=== PATIENT | female | born 1950 | race Hispanic/Latino ===

== ENCOUNTER 2023-03-15 07:18 | Inpatient (IN) | payer OTHER ==
[2023-03-15] MEDS ORDERED: METHYLPREDNISOLONE 125 MG INJ ONE (07:54)
[2023-03-15] MEDS ORDERED: CEFTRIAXONE 1000 MG/VIAL ONE (07:54)
[2023-03-15] MEDS ORDERED: NA CHLORIDE 0.9% 250 ML ONE (07:55)
[2023-03-15] MEDS ORDERED: AZITHROMYCIN 500 MG INJ IVPB ONE (07:55)
--- NOTE | 2023-03-15 07:56 | RAD REPORT ---
EXAM DESCRIPTION: RAD - Chest Single View - 03/15/2023 7:48 am CLINICAL HISTORY: COPD COMPARISON: <Comparisons> FINDINGS: Lines: None. Lungs: No evidence of edema or pneumonia. Hyperexpanded lungs. Pleural: No significant pleural effusions or pneumothorax. Cardiac: The heart size is within normal limits. Mediastinum: Within normal limits. Bones: No acute fractures. Other: None IMPRESSION: Emphysema without superimposed acute process .
[2023-03-15 08:01] LABS: Absolute Lymphocytes (CBC) 0.9 K/uL (0.7-4.9); Hematocrit 42.2 % (36.0-45.0); Lymphocytes % 16.3 % (15.3-44.8); MCV 88.3 fL (80-100); MPV 6.6 fL (7.6-11.3); Platelets 402 thou/uL (152-406); RBC Red Blood Cell Count 4.78 M/uL (3.86-4.86)
[2023-03-15 08:06] LABS: Protime INR 0.99
[2023-03-15 08:16] LABS: Albumin 3.9 g/dL (3.4-5.0); Bilirubin Total 0.5 mg/dL (0.2-1.0); Potassium 3.9 mEq/L (3.5-5.1); Protein, Total 8.1 g/dL (6.4-8.2)
--- NOTE | 2023-03-15 08:35 | EDPHYS ---
Physician Documentation [facility] Name: Ernst Mandel Age: 72 yrs Sex: Female : 1950 Arrival Date: 03/15/2023 Time: 07:18 Bed 25 Private MD: ED Physician Chris Matthews HPI: 03/15 07:50 This 72 yrs old Female presents to ER via EMS with complaints of Shortness Of ec2 Breath. 07:50 Patient arrives today due to concern for progressive shortness of breath. Patient ec2 reports that she has a history of COPD, has occasional oxygen dependence however has had progressive symptoms over the past week. Patient reports that she has cough without fevers, no nausea or vomiting, no diarrhea symptoms. Patient denies any chest pain. Denies any leg swelling. States that she has albuterol inhalers at home that have had minimal improvement with her symptoms.. Historical: - Allergies: 07:33 No Known Allergies; hb - PMHx: 07:33 COPD; hb 07:33 Hypothyroidism; rs5 - Immunization history:: Adult Immunizations up to date. - Social history:: Smoking status: Patient reports the use of cigarette tobacco products, smokes one pack cigarettes per day. ROS: 07:50 Constitutional: as per hpi ec2 Exam: 07:50 Constitutional: GEN: NAD Head: atraumatic Eyes: EOMI Ears: External ears are ec2 normal. CV: regular rate LUNGS: Tachypnea noted, scattered wheezes with generalized decreased aeration ABD: non-distended SKIN: no evidence of rashes MSK: no evidence of trauma NEURO: moves all extremities equally Vital Signs: 07:30 BP 162 / 102; Pulse 96; Resp 24; Temp 98.2(O); Pulse Ox 100% on 3 lpm NC; Weight 61.69 hb kg; Height 5 ft. 3 in. ; Pain 0/10; 07:45 BP 159 / 98; Pulse 94; Resp 26 S; Pulse Ox 100% on 3 lpm NC; aa5 08:20 BP 130 / 107; Pulse 91; Resp 25 S; Pulse Ox 100% on 3 lpm NC; aa5 08:44 BP 145 / 91; Pulse 94; Resp 22 S; Pulse Ox 100% on Nebulizer Mask; aa5 09:30 BP 145 / 93; Pulse 90; Resp 24 S; Pulse Ox 100% on 2 lpm NC; aa5 10:30 BP 147 / 89; Pulse 87; Resp 23 S; Pulse Ox 100% on 2 lpm NC; aa5 11:30 BP 143 / 94; Pulse 82; Resp 21 S; Temp 97.8(TE); Pulse Ox 100% on 2 lpm NC; aa5 07:30 Body Mass Index 24.09 (61.69 kg, 160.02 cm) hb 07:30 Pain Scale: Adult hb MDM: 07:23 Patient medically screened. ec2 07:50 ED course: Patient arrives today due to concern for progressive shortness of breath in ec2 setting of known COPD. Examination remarkable for pulmonary findings as noted above. Patient does meet SIRS criteria with the heart rate as well as the tachypnea, will empirically treat for pulmonary pathology given the patient's known COPD. Currently considering COPD exacerbation, pneumonia, viral infection. I will give the patient Solu-Medrol, antibiotics and a breathing treatment and reassess the patient. I suspect patient will require admission to the hospital for continued management of her COPD exacerbation with oxygen dependence.. 08:05 ED course: Chest x-ray independently reviewed and interpreted by me, shows ec2 hyperinflated lungs consistent with COPD, no evidence of focal infiltrate.. 08:20 ED course: CBC is reassuring without leukocytosis or anemia. Metabolic profile with ec2 minimal hyponatremia, otherwise reassuring renal function. Lactic acid within normal ranges. Coagulation profile is reassuring. . 08:34 ED course: Ultimately patient needed for stress criteria with concern for COPD ec2 exacerbation, will admit for continued management of sepsis. I discussed case with hospitalist, pending admission.. 08:35 Data reviewed: vital signs. ec2 03/15 07:37 Order name: Blood Culture Adult (2) ec2 03/15 07:37 Order name: CBC with Diff; Complete Time: 08:20 ec2 03/15 07:37 Order name: CMP; Complete Time: 08:20 ec2 03/15 07:37 Order name: Lactate w/ 2H reflex if indic.; Complete Time: 08:20 ec2 03/15 07:37 Order name: Protime (+inr); Complete Time: 08:20 ec2 03/15 07:37 Order name: Ptt, Activated; Complete Time: 08:20 ec2 03/15 07:37 Order name: COVID-19 SARS RT PCR; Complete Time: 09:41 ec2 03/15 07:37 Order name: Influenza Screen (a \T\ B); Complete Time: 09:41 ec2 03/15 07:59 Order name: TSH; Complete Time: 09:06 ec2 03/15 07:59 Order name: T4 Free; Complete Time: 09:06 ec2 03/15 11:18 Order name: Urinalysis w/ reflexes EDMS 03/15 11:18 Order name: Basic Metabolic Panel EDMS 03/15 11:18 Order name: Basic Metabolic Panel EDMS 03/15 11:18 Order name: Basic Metabolic Panel EDMS 03/15 11:18 Order name: Magnesium EDMS 03/15 11:18 Order name: Magnesium EDMS 03/15 11:18 Order name: Magnesium EDMS 03/15 07:37 Order name: Chest Single View XRAY; Complete Time: 08:05 ec2 03/15 07:37 Order name: EKG; Complete Time: 07:38 ec2 03/15 07:37 Order name: Cardiac monitoring; Complete Time: 07:55 ec2 03/15 07:37 Order name: EKG - Nurse/Tech; Complete Time: 07:38 ec2 03/15 07:37 Order name: IV Saline Lock - Large Bore; Complete Time: 07:55 ec2 03/15 07:37 Order name: Labs collected and sent; Complete Time: 07:55 ec2 03/15 07:37 Order name: O2 Per Protocol; Complete Time: 07:55 ec2 03/15 07:37 Order name: O2 Sat Monitoring; Complete Time: 07:55 ec2 03/15 07:37 Order name: Vital Signs; Complete Time: 07:39 ec2 Administered Medications: 07:51 Drug: MethylPrednisoLONE IVP 125 mg IVP once Route: IVP; Site: right antecubital; aa5 08:10 Follow up: Response: No adverse reaction aa5 08:18 Drug: Rocephin IV 1 grams IV at calculated rate once; Given slow IV push per pharmacy aa5 instructions Route: IV; Rate: calculated rate; Site: right antecubital; 08:21 Follow up: IV Status: Completed infusion aa5 08:24 Follow up: Response: No adverse reaction aa5 08:24 Drug: AZITHromycin IVPB 500 mg IVPB once over 1 hrs; (mix in 250 mL NS) Route: IVPB; aa5 Infused Over: 1 hrs; Site: right wrist; 08:44 Follow up: Response: No adverse reaction aa5 09:24 Follow up: Response: No adverse reaction; IV Status: Completed infusion aa5 08:37 Drug: DuoNeb Nebulize (3:1) (2.5 mg - 0.5 mg) 3 ml Nebulizer once Route: Nebulizer; aa5 08:44 Follow up: Response: No adverse reaction aa5 09:24 Drug: Magnesium Sulfate IVPB 2 grams IVPB once over 2 hrs Route: IVPB; Infused Over: 2 aa5 hrs; Site: right wrist; 10:24 Follow up: IV Status: Completed infusion aa5 Disposition: 08:34 Critical Care:. ec2 Disposition Summary: 03/15/23 08:35 Hospitalization Ordered Notes: Hospitalization Status: Inpatient Admission ec2 Provider: Justin Hope ec2 Condition: Stable ec2 Problem: an acute exacerbation ec2 Symptoms: have improved ec2 Bed/Room Type: Standard ec2 Location: Telemetry/MedSurg (Inpatient)(03/15/23 20:23) cg Room Assignment: [facility](03/15/23 20:23) cg Diagnosis - COPD/ Chronic obstructive pulmonary disease with (acute) exacerbation ec2 - Sepsis, unspecified organism ec2 Discharge Instructions: - Discharge Summary Sheet aa5 Forms: - SBAR form aa5 - Medication Reconciliation Form ec2 - Leadership Thank You Letter ec2 Critical care time excluding procedures: 08:34 Critical care time: Bedside Care: 25 minutes, Consultation: 5 minutes. Total time: 30 ec2 minutes Signatures: Dispatcher [employer] EDLou Kelley RN RN aa5 Isrrael Bhatt FNP-Alex AVALOSP-Cla1 Opal Ling RN RN cg Griselda Lantigua RN RN hb Botello, Elizabeth eb Sotelo, Ricky, RN RN rs5 Chris Matthews MD MD ec2 Corrections: (The following items were deleted from the chart) 08:00 07:37 Accucheck ordered. ec2 aa5 09:19 08:35 Telemetry/MedSurg (Inpatient) ec2 eb 09:19 08:35 ec2 eb 20:23 09:19 [facility] ER HOLD eb cg 20:23 09:19 ERHOLD- eb cg
--- NOTE | 2023-03-15 08:35 | ER ---
Nurse's Notes [facility] Name: Ernst Mandel Age: 72 yrs Sex: Female : 1950 Arrival Date: 03/15/2023 Time: 07:18 Bed 25 Private MD: Diagnosis: COPD/ Chronic obstructive pulmonary disease with (acute) exacerbation;Sepsis, unspecified organism Presentation: 03/15 07:30 Chief complaint: Patient's son or daughter states: Worsening SOB x 2 weeks, became hb severe this morning, unrelieved by albuterol neb. Hx of COPD, on 3LNC home O2. BP 180/96, HR 102, initially unable to get SpO2, 96% on 6LNC. Coronavirus screen: Client presents with at least one sign or symptom that may indicate coronavirus-19. Provider contacted for isolation considerations. Ebola Screen: No symptoms or risks identified at this time. Initial Sepsis Screen: Does the patient meet any 2 criteria? RR > 20 per min. HR > 90 bpm. Yes Does the patient have a suspected source of infection? No. Patient's initial sepsis screen is negative. Risk Assessment: Do you want to hurt yourself or someone else? Patient reports no desire to harm self or others. Onset of symptoms was February 28, 2023. 07:30 Method Of Arrival: EMS: [facility] 07:30 Acuity: IFTIKHAR 2 hb Triage Assessment: 07:34 General: Appears distressed, Behavior is calm, cooperative. Pain: Denies pain. Neuro: hb Level of Consciousness is awake, alert, obeys commands, Oriented to person, place, time, situation. Cardiovascular: Patient's skin is warm and dry. Rhythm is tachy. Respiratory: Reports shortness of breath at rest Respiratory effort is labored, Respiratory pattern is tachypnea. Historical: - Allergies: 07:33 No Known Allergies; hb - PMHx: 07:33 COPD; hb 07:33 Hypothyroidism; rs5 - Immunization history:: Adult Immunizations up to date. - Social history:: Smoking status: Patient reports the use of cigarette tobacco products, smokes one pack cigarettes per day. Screenin:40 [facility] ED Fall Risk Assessment (Adult) History of falling in the last 3 months, aa5 including since admission No falls in past 3 months (0 pts) Confusion or Disorientation No (0 pts) Intoxicated or Sedated No (0 pts) Impaired Gait No (0 pts) Mobility Assist Device Used No (0 pt) Altered Elimination No (0 pt) Score/Fall Risk Level 0 - 2 = Low Risk Oriented to surroundings, Maintained a safe environment, Educated pt \T\ family on fall prevention, incl call for assistance when getting out of bed. Abuse screen: Denies threats or abuse. Nutritional screening: No deficits noted. Tuberculosis screening: No symptoms or risk factors identified. Assessment: 07:35 General: Appears uncomfortable, Behavior is calm, cooperative. Pain: Complains of pain aa5 in chest Pain currently is 5 out of 10 on a pain scale. Quality of pain is described as pressure, Pain began gradually, Is continuous. Neuro: Level of Consciousness is awake, alert, obeys commands, Oriented to person, place, time, situation. Cardiovascular: Heart tones S1 S2 present Rhythm is regular. Respiratory: Reports shortness of breath at rest since 1 week ago cough that is productive, with clear sputum Airway is patent Respiratory effort is even, labored, Respiratory pattern is tachypnea Breath sounds with wheezes bilaterally. GI: Abdomen is non-distended, Bowel sounds present X 4 quads. Abd is soft and non tender X 4 quads. : No signs and/or symptoms were reported regarding the genitourinary system. EENT: No signs and/or symptoms were reported regarding the EENT system. Derm: Skin is dry, Skin is normal, Skin temperature is warm. Musculoskeletal: Range of motion: intact in all extremities. 08:00 Neuro: Level of Consciousness is awake, alert, obeys commands, Oriented to person, aa5 place, time, situation. Respiratory: Airway is patent Respiratory effort is even, labored, Respiratory pattern is regular, symmetrical, tachypnea Breath sounds with wheezes bilaterally. Derm: Skin is dry, Skin is normal, Skin temperature is warm. 08:34 Reassessment: Pt's breathing and SOB has not improved, MD notified. . aa5 09:30 Neuro: Level of Consciousness is awake, alert, obeys commands, Oriented to person, aa5 place, time, situation. Respiratory: Airway is patent Respiratory effort is even, labored, Respiratory pattern is tachypnea. Derm: Skin is dry, Skin is normal, Skin temperature is warm. 09:30 Reassessment: Patient states feeling better. aa5 10:30 Neuro: Level of Consciousness is awake, alert, obeys commands, Oriented to person, aa5 place, time, situation. Cardiovascular: Rhythm is sinus rhythm. Respiratory: Airway is patent Respiratory effort is even, Respiratory pattern is tachypnea. Derm: Skin is dry, Skin is normal, Skin temperature is warm. 10:30 Reassessment: Pt sitting up in bed watching TV.. aa5 11:30 Reassessment: Patient is alert, oriented x 3, equal unlabored respirations, skin aa5 warm/dry/pink. Patient states feeling better. Patient states symptoms have improved. Vital Signs: 07:30 BP 162 / 102; Pulse 96; Resp 24; Temp 98.2(O); Pulse Ox 100% on 3 lpm NC; Weight 61.69 hb kg; Height 5 ft. 3 in. ; Pain 0/10; 07:45 BP 159 / 98; Pulse 94; Resp 26 S; Pulse Ox 100% on 3 lpm NC; aa5 08:20 BP 130 / 107; Pulse 91; Resp 25 S; Pulse Ox 100% on 3 lpm NC; aa5 08:44 BP 145 / 91; Pulse 94; Resp 22 S; Pulse Ox 100% on Nebulizer Mask; aa5 09:30 BP 145 / 93; Pulse 90; Resp 24 S; Pulse Ox 100% on 2 lpm NC; aa5 10:30 BP 147 / 89; Pulse 87; Resp 23 S; Pulse Ox 100% on 2 lpm NC; aa5 11:30 BP 143 / 94; Pulse 82; Resp 21 S; Temp 97.8(TE); Pulse Ox 100% on 2 lpm NC; aa5 07:30 Body Mass Index 24.09 (61.69 kg, 160.02 cm) hb 07:30 Pain Scale: Adult hb ED Course: 07:23 Patient arrived in ED. aa5 07:23 Chris Matthews MD is Attending Physician. ec2 07:33 Triage completed. hb 07:34 Arm band placed on. hb 07:35 Patient has correct armband on for positive identification. Placed in gown. Bed in low aa5 position. Call light in reach. Side rails up X2. Client placed on continuous cardiac and pulse oximetry monitoring. NIBP monitoring applied. 07:48 Inserted saline lock: 20 gauge in right antecubital area, using aseptic technique. aa5 07:50 Chest Single View XRAY In Process Unspecified. EDMS 07:50 Initial lab(s) drawn, by me, sent to lab. First set of blood cultures drawn by me. aa5 08:10 Second set of blood cultures drawn by me. aa5 08:18 Inserted saline lock: 22 gauge in right wrist, using aseptic technique. aa5 08:22 Lou Vasquez RN is Primary Nurse. aa5 08:34 Tariq Fernandes MD is Hospitalizing Provider. ec2 08:35 Justin Hope MD is Hospitalizing Provider. ec2 12:00 Patient admitted, IV remains in place. aa5 12:00 No provider procedures requiring assistance completed. aa5 Administered Medications: 07:51 Drug: MethylPrednisoLONE IVP 125 mg IVP once Route: IVP; Site: right antecubital; aa5 08:10 Follow up: Response: No adverse reaction aa5 08:18 Drug: Rocephin IV 1 grams IV at calculated rate once; Given slow IV push per pharmacy aa5 instructions Route: IV; Rate: calculated rate; Site: right antecubital; 08:21 Follow up: IV Status: Completed infusion aa5 08:24 Follow up: Response: No adverse reaction aa5 08:24 Drug: AZITHromycin IVPB 500 mg IVPB once over 1 hrs; (mix in 250 mL NS) Route: IVPB; aa5 Infused Over: 1 hrs; Site: right wrist; 08:44 Follow up: Response: No adverse reaction aa5 09:24 Follow up: Response: No adverse reaction; IV Status: Completed infusion aa5 08:37 Drug: DuoNeb Nebulize (3:1) (2.5 mg - 0.5 mg) 3 ml Nebulizer once Route: Nebulizer; aa5 08:44 Follow up: Response: No adverse reaction aa5 09:24 Drug: Magnesium Sulfate IVPB 2 grams IVPB once over 2 hrs Route: IVPB; Infused Over: 2 aa5 hrs; Site: right wrist; 10:24 Follow up: IV Status: Completed infusion aa5 Medication: 08:29 VIS not applicable for this client. aa5 Outcome: 08:35 Decision to Hospitalize by Provider. ec2 12:00 Admitted to ER Hold. Please see [facility] for further documentation. aa5 12:00 Condition: stable 12:00 Instructed on the need for admit, Demonstrated understanding of instructions, 21:33 Patient left the ED. cm10 Signatures: Dispatcher [employer] Lou Alvarenga, RN RN aa5 Griselda Lantigua RN RN Michael Milligan, RN RN rs5 Aura Carney RN RN cm10 Chris Matthews MD MD ec2 Corrections: (The following items were deleted from the chart) 08:42 07:35 Respiratory: Reports shortness of breath at rest since 1 week ago Airway is aa5 patent Respiratory effort is even, labored, Respiratory pattern is tachypnea Breath sounds with wheezes bilaterally. aa5 19:11 09:30 BP 145 / 93; Pulse 90bpm; Resp 24bpm; Spontaneous; Pulse Ox 100% Nasal Cannula aa5 FiO2 2%; aa5
[2023-03-15 08:37] LABS: Thyroid Stimulating Hormone 17.1 uIU/mL (0.358-3.740)
[2023-03-15] MEDS ORDERED: IPRATROPIUM BROM 0.5MG/2.5ML ONE ×3 (08:50→20:02)
[2023-03-15] MEDS ORDERED: ALBUTEROL 2.5 MG/3 ML NEB SOL ONE (08:50)
--- NOTE | 2023-03-15 09:26 | P.HP ---
Certification for Inpatient Patient admitted to: Observation With expected LOS: <2 Midnights Patient will require the following post-hospital care: None Practitioner: I am a practitioner with admitting privileges, knowledge of patient current condition, hospital course, and medical plan of care. Services: Services provided to patient in accordance with Admission requirements found in Title 42 Section 412.3 of the Code of Federal Regulations Patient History Date of Service: 03/15/23 Reason for admission: COPD exacerbation History of Present Illness: 72-year-old female with history of COPD on home oxygen, hypothyroidism presents emerged part for shortness of breath. She is visiting from out of town reports that her shortness of breath began approximate 2 weeks ago but became much worse last night. Upon arrival to the emergency department patient with significant expiratory wheezing, moderate distress. Her labs were significant for sodium 13 1 chloride 96 creatinine 0.52 glucose 114 lactic acid 1.1 TSH 17.1 Free T4 1.04 COVID and influenza test were negative chest x-ray showed emphysema without superimposed findings. She was treated with IV steroids, nebulizer treatments in the ED without significant improvement clinically admitted for COPD exacerbation. She does wear home oxygen but only periodically/as needed. - Past Medical/Surgical History -: COPD -: Hypothyroidism -: Hysterectomy -: Tonsillectomy Psychosocial/ Personal History: Lives out of town, here visiting family - Family History Family History: Reviewed- Non-Contributory - Social History Smoking Status: Current every day smoker Counseled patient to stop smoking for: less than 10 minutes Alcohol use: Yes CD- Drugs: No Caffeine use: Yes Place of Residence: Home Review of Systems 10-point ROS is otherwise unremarkable Respiratory: Shortness of Breath, Wheezing Physical Examination - Physical Exam General: Alert, In no apparent distress, Oriented x3 HEENT: Atraumatic, PERRLA, Mucous membr. moist/pink, EOMI, Sclerae nonicteric Neck: Supple, 2+ carotid pulse no bruit, No LAD, Without JVD or thyroid abnormality Respiratory: Diminished, Expiratory wheezes Cardiovascular: No edema, Regular rate/rhythm, Normal S1 S2 Capillary refill: <2 Seconds Gastrointestinal: Normal bowel sounds, No tenderness Musculoskeletal: No tenderness Integumentary: No rashes Neurological: Normal gait, Normal speech, Normal strength at 5/5 x4 extr, Normal tone, Normal affect Lymphatics: No axilla or inguinal lymphadenopathy - Studies Laboratory Data (last 24 hrs) 03/15/23 03/15/23 03/15/23 07:50 07:50 07:50 WBC 5.50 Hgb 13.9 Hct 42.2 Plt Count 402 PT 10.9 INR 0.99 APTT 35.9 Sodium 131 L Potassium 3.9 BUN 4 L Creatinine 0.52 L Glucose 114 H Total Bilirubin 0.5 AST 17 ALT 20 Alkaline Phosphatase 92 Microbiology Data (last 24 hrs): 03/15/23 07:55 Nasopharnyx Influenza Type A Antigen Screen - Final 03/15/23 07:55 Nasopharnyx Influenza Type B Antigen Screen - Final Assessment and Plan - Plan Assessment: COPD exacerbation-on chronic O2 Hypothyroidism Plan: COPD exacerbation-on chronic O2 Continue supplemental oxygen as needed As needed nebulizer treatments, p.o. steroids, ICS in place Pulmonology consult in place. Continue Zithromax. PRN Bipap, mild to moderate distress noted, significant for wheezing. Given dose of IV mag. Hypothyroidism Continue home medications. DVT PPX: Lovenox Code status: Full Discharge Plan: Home Plan to discharge in: 24 Hours - Advance Directives Does patient have a Living Will: No Does patient have a Durable POA for Healthcare: No - Code Status/Comfort Care Code Status Assessed: Yes (Full code) Critical Care: No Time Spent Managing Pts Care (In Minutes): 55
[2023-03-15] MEDS ORDERED: Magnesium Sulfate 2gm IVPB 2 G/50 ML BAG IV ONE (09:35)
[2023-03-15] MEDS ORDERED: ONDANSETRON 4 MG/2 ML VIAL IV PRN (11:16)
[2023-03-15 13:20] VITALS: BMI 24.0
[2023-03-15] MEDS: IPRATROPIUM BROM 0.5MG/2.5ML NEB SCH ×2 (15:00→19:45)
[2023-03-15 17:52] LABS: Specific Gravity 1.009 (1.005-1.030); Urine Bacteria None Seen /HPF (<20); Urine Bilirubin NEGATIVE (Negative); Urine Blood Negative (Negative); Urine Clarity Extremely Turbid (Clear); Urine Color Light-Yellow (Yellow); Urine Glucose NEGATIVE (Negative); Urine Mucus Slight /HPF (None Seen); Urine Protein NEGATIVE (Negative); Urine RBC None Seen /HPF (None Seen); Urine Urobilinogen Normal (Normal)
[2023-03-15] MEDS ORDERED: BENZONATATE 100 MG CAP PO ONE (20:10)
[2023-03-15] MEDS ORDERED: predniSONE 20 MG TAB ONE (20:11)
[2023-03-15] MEDS: DULERA 200/5 (MOMETASONE/FORMOTEROL) INHALER IH SCH (20:29)
[2023-03-15] MEDS: predniSONE 20 MG TAB PO SCH (20:29)
[2023-03-15] MEDS: BENZONATATE 100 MG CAP PO PRN (20:29)
[2023-03-16] MEDS: IPRATROPIUM BROM 0.5MG/2.5ML NEB SCH ×4 (01:44→20:00)
[2023-03-16 03:54] LABS: Magnesium 2.6 mg/dL (1.6-2.4); Potassium 3.9 mEq/L (3.5-5.1)
[2023-03-16] MEDS ORDERED: POTASSIUM CL SA 10 MEQ TAB PO ONE (06:00)
[2023-03-16] MEDS: AZITHROMYCIN IV 500 MG in NA CHLORIDE 0.9% 250 ML IVPB SCH (08:12)
[2023-03-16] MEDS: ENOXAPARIN 40 MG/0.4 ML SQ SCH (08:12)
[2023-03-16] MEDS: predniSONE 20 MG TAB PO SCH ×2 (08:12→20:22)
[2023-03-16] MEDS: DULERA 200/5 (MOMETASONE/FORMOTEROL) INHALER IH SCH ×2 (08:13→20:26)
--- NOTE | 2023-03-16 10:53 | P.PN ---
Subjective Date of Service: 03/16/23 Chief Complaint: COPD exacerbation Subjective: Improving Still short of breath but improving <Isrrael Bhatt - Last Filed: 03/16/23 10:52> Date of Service: 03/16/23 <Justin Hope - Last Filed: 03/16/23 17:45> Review of Systems 10-point ROS is otherwise unremarkable Respiratory: Cough, Shortness of Breath <Isrrael Bhatt - Last Filed: 03/16/23 10:52> Physical Examination - Vital Signs Temperature: 97.7 F Blood Pressure: 145/80 Pulse: 70 Respirations: 16 Pulse Ox (%): 99 - Physical Exam General: Alert, In no apparent distress, Oriented x3 HEENT: Atraumatic, PERRLA, EOMI Neck: Supple, JVD not distended Respiratory: Expiratory wheezes Cardiovascular: Regular rate/rhythm, Normal S1 S2 Gastrointestinal: Normal bowel sounds, No tenderness Musculoskeletal: No tenderness Integumentary: No rashes Neurological: Normal speech, Normal affect - Studies Microbiology Data (last 24 hrs): 03/15/23 07:55 Nasopharnyx Influenza Type A Antigen Screen - Final 03/15/23 07:55 Nasopharnyx Influenza Type B Antigen Screen - Final Medications List Reviewed: Yes <Isrrael Bhatt - Last Filed: 03/16/23 10:52> Assessment And Plan - Plan Assessment: COPD exacerbation-on chronic O2 Hypothyroidism Plan: COPD exacerbation-on chronic O2 Has not had to wear home 02 in the past 5 months, now needing Continue supplemental oxygen as needed Still with mild-moderate wheezing As needed nebulizer treatments, p.o. steroids, ICS in place Pulmonology consult in place. Continue Zithromax. Hypothyroidism Continue home medications. Dispo-likely DC tomorrow DVT PPX: Lovenox Code status: Full Discharge Plan: Home Plan to discharge in: 24 Hours - Code Status/Comfort Care Code Status Assessed: Yes (Full) Critical Care: No Time Spent Managing PTS Care (In Minutes): 35 <Isrrael Bhatt - Last Filed: 03/16/23 10:52> Physician Review: Patient Assessed, Agree with Above Assessment and Plan Physician Review Additional Text: She is still wheezing on exam. She would likely benefit from an additional day of IV steroids and bronchodilators. Dr. Jackson to take over as attending physician tomorrow. <Justin Hope - Last Filed: 03/16/23 17:45>
[2023-03-16] MEDS: BENZONATATE 100 MG CAP PO PRN (20:22)
[2023-03-17] MEDS: IPRATROPIUM BROM 0.5MG/2.5ML NEB SCH ×4 (02:00→19:05)
[2023-03-17 03:06] LABS: Magnesium 2.5 mg/dL (1.6-2.4); Potassium 3.9 mEq/L (3.5-5.1)
[2023-03-17] MEDS: LEVOTHYROXINE SOD 0.1 MG TAB PO SCH (05:58)
[2023-03-17] MEDS: BENZONATATE 100 MG CAP PO PRN ×2 (05:59→20:42)
[2023-03-17] MEDS ORDERED: POTASSIUM CL SA 10 MEQ TAB PO ONE (09:00)
[2023-03-17] MEDS: DULERA 200/5 (MOMETASONE/FORMOTEROL) INHALER IH SCH ×2 (09:00→20:43)
[2023-03-17] MEDS: ENOXAPARIN 40 MG/0.4 ML SQ SCH (09:55)
[2023-03-17] MEDS: predniSONE 20 MG TAB PO SCH ×2 (09:55→20:42)
[2023-03-17] MEDS: AZITHROMYCIN IV 500 MG in NA CHLORIDE 0.9% 250 ML IVPB SCH (09:56)
--- NOTE | 2023-03-17 11:52 | P.CNS ---
Date of Consult: 03/17/23 Reason for Consult: COPD exacerbation Chief Complaint: COPD exacerbation History of Present Illness: Patient is 72 years of age with a history of COPD lives in [place] has a history of COPD uses Symbicort last exacerbation was about about a year ago has gotten worse over the past 2 weeks complaining of progressive dyspnea and cough is an active smoker Allergies No Known Allergies Allergy (Unverified 03/15/23 11:16) Home Medications: Albuterol Neb [Proventil 0.083% Neb Soln] 1 inh NEB BID PRN 03/15/23 Budesonide/Formoterol Fumarate [Symbicort 160-4.5 Mcg Inhaler] 2 puff PO BID 03/15/23 Levothyroxine Sodium [Synthroid] 200 mcg PO DAILY 03/15/23 - Past Medical/Surgical History -: COPD -: Hypothyroidism -: Hysterectomy -: Tonsillectomy Psychosocial/ Personal History: Lives out of town, here visiting family - Social History Smoking Status: Current every day smoker Alcohol use: Yes CD- Drugs: No Caffeine use: Yes Place of Residence: Home Review of Systems 10-point ROS is otherwise unremarkable Respiratory: Cough, Shortness of Breath Physical Examination Temp Pulse Resp BP Pulse Ox 97.1 F 64 17 144/77 H 98 03/17/23 08:00 03/17/23 08:00 03/17/23 08:00 03/17/23 08:00 03/17/23 08:00 General: Alert, Oriented x3 Neck: Supple Respiratory: Clear to auscultation bilaterally, Diminished Cardiovascular: No edema, Regular rate/rhythm, Normal S1 S2 Gastrointestinal: Normal bowel sounds, Soft and benign - Problems (1) COPD exacerbation Current Visit: Yes Status: Acute Plan: Patient is 72 years of age with a history of COPD admitted with an exacerbation she is an active smoker patient's inhaler needs to be upgraded to Trelegy or Breztri chemistries and labs reviewed chest x-ray shows COPD changes discharge home on prednisone/follow-up with me in 2-week patient counseled to stop smoking
[2023-03-18] MEDS: IPRATROPIUM BROM 0.5MG/2.5ML NEB SCH ×3 (01:10→13:20)
[2023-03-18] MEDS: LEVOTHYROXINE SOD 0.1 MG TAB PO SCH (05:53)
[2023-03-18] MEDS: ALBUTEROL 2.5 MG/3 ML NEB SOL NEB PRN ×2 (07:55→13:20)
--- NOTE | 2023-03-18 07:59 | EKG ---
Test Date: 2023-03-15 Test Time: 07:31:52 Multigrapher: AVI MEASUREMENT RESULTS: Intervals: Rate: 109 [place]: 184 QRSD: 78 QT: 380 QTc: 511 [place]: P: 79 [place]: 184 QRS: 76 T: 79 INTERPRETIVE STATEMENTS: Sinus tachycardia Nonspecific ST abnormality Abnormal ECG No previous ECG available for comparison Electronically Signed On 03-18-23 07:53:28 CDT by Kirk Castillo
[2023-03-18] MEDS: ENOXAPARIN 40 MG/0.4 ML SQ SCH (08:42)
[2023-03-18] MEDS: predniSONE 20 MG TAB PO SCH (08:42)
[2023-03-18] MEDS: DULERA 200/5 (MOMETASONE/FORMOTEROL) INHALER IH SCH (08:42)
[2023-03-18 08:47] LABS: Potassium 3.8 mEq/L (3.5-5.1)
[2023-03-18] MEDS: BENZONATATE 100 MG CAP PO PRN (10:23)
[2023-03-18 13:09] VITALS: BP 131/78; TEMP 97.5
[2023-03-18 13:47] VITALS: O2SAT 93
--- NOTE | 2023-03-22 18:15 | P.PN ---
Date of Service: 03/17/23 Subjective Subjective: Still short of breath but improving Physical Examination - Vital Signs Temperature: 97.7 F Blood Pressure: 145/80 Pulse: 70 Respirations: 16 Pulse Ox (%): 99 - Physical Exam General: Alert, In no apparent distress, Oriented x3 HEENT: Atraumatic, PERRLA, EOMI Neck: Supple, JVD not distended Respiratory: Expiratory wheezes Cardiovascular: Regular rate/rhythm, Normal S1 S2 Gastrointestinal: Normal bowel sounds, No tenderness Musculoskeletal: No tenderness Integumentary: No rashes Neurological: Normal speech, Normal affect Assessment And Plan - Assesment/Plan Assessment: COPD exacerbation-on chronic O2 Hypothyroidism Plan: COPD exacerbation-on chronic O2 Has not had to wear home 02 in the past 5 months, now needing Continue supplemental oxygen as needed Still with mild-moderate wheezing As needed nebulizer treatments, p.o. steroids, ICS in place Pulmonology consult in place. Continue Zithromax. Hypothyroidism Continue home medications. Dispo-likely DC tomorrow DVT PPX: Lovenox Code status: Full Discharge Plan: Home Plan to discharge in: 24 Hours - Code Status/Comfort Care Code Status Assessed: Yes (Full) Critical Care: No Time Spent Managing PTS Care (In Minutes): 35
--- NOTE | 2023-03-22 18:16 | P.DS ---
Discharge Date: 03/18/23 Disposition: ROUTINE DISCHARGE Discharge Condition: GOOD Reason for Admission: COPD exacerbation Brief History of Present Illness: 72-year-old female with history of COPD on home oxygen, hypothyroidism presents emerged part for shortness of breath. She is visiting from out of town reports that her shortness of breath began approximate 2 weeks ago but became much worse last night. Upon arrival to the emergency department patient with significant expiratory wheezing, moderate distress. Her labs were significant for sodium 131 chloride 96 creatinine 0.52 glucose 114 lactic acid 1.1 TSH 17.1 Free T4 1.04 COVID and influenza test were negative chest x-ray showed emphysema without superimposed findings. She was treated with IV steroids, nebulizer treatments in the ED without significant improvement clinically admitted for COPD exacerbation. She does wear home oxygen but only periodically/as needed. Vital Signs/Physical Exam: Temp Pulse Resp BP Pulse Ox 97.5 F 75 16 131/78 97 03/18/23 12:00 03/18/23 12:00 03/18/23 12:00 03/18/23 12:00 03/18/23 12:00 Laboratory Data at Discharge: WBC 5.50 thou/uL (4.3-10.9) 03/15/23 07:50 Hgb 13.9 g/dL (12.0-15.0) 03/15/23 07:50 Hct 42.2 % (36.0-45.0) 03/15/23 07:50 Plt Count 402 thou/uL (152-406) 03/15/23 07:50 PT 10.9 SECONDS (9.5-12.5) 03/15/23 07:50 INR 0.99 03/15/23 07:50 APTT 35.9 SECONDS (24.3-36.9) 03/15/23 07:50 Sodium 133 mEq/L (136-145) L 03/18/23 07:43 Potassium 3.8 mEq/L (3.5-5.1) 03/18/23 07:43 BUN 4 mg/dL (7-18) L 03/18/23 07:43 Creatinine 0.45 mg/dL (0.55-1.02) L 03/18/23 07:43 Glucose 126 mg/dL (74-106) H 03/18/23 07:43 Magnesium 2.5 mg/dL (1.6-2.4) H 03/17/23 01:58 Total Bilirubin 0.5 mg/dL (0.2-1.0) 03/15/23 07:50 AST 17 U/L (15-37) 03/15/23 07:50 ALT 20 U/L (13-56) 03/15/23 07:50 Alkaline Phosphatase 92 U/L (45-117) 03/15/23 07:50 Home Medications: Albuterol Neb [Proventil 0.083% Neb Soln] 1 inh NEB BID PRN 03/15/23 Levothyroxine Sodium [Synthroid] 200 mcg PO DAILY 03/15/23 Budesonide/Glycopyr/Formoterol [Breztri Aerosphere Inhaler] 10.7 gm IH BID 30 Days #120 aero 03/17/23 Levothyroxine Sodium [Synthroid] 200 mcg PO DAILY #30 tab 03/18/23 predniSONE [Prednisone*] 20 mg PO BID #11 tab 03/18/23 New Medications: Budesonide/Glycopyr/Formoterol [Breztri Aerosphere Inhaler] 10.7 gm IH BID 30 Days #120 aero predniSONE [Prednisone*] 20 mg PO BID #11 tab Levothyroxine Sodium [Synthroid] 200 mcg PO DAILY #30 tab Physician Discharge Instructions: -DC IV and DC home -Follow-up with PCP in 1 to 2 weeks -Follow-up with Pulmonary in 1 to 2 weeks -Please call Dr. Jackson at [phone] if any questions regarding hospital stay -Please call nursing station at [phone] if any nursing or medication questions -Return to the emergency room if symptoms worsen Diet: Regular Activity: Fall precautions Followup: Jose Carranza MD [ACTIVE - CAN ADMIT] - NONE,NONE [Primary Care Provider] -
== END 2023-03-18 15:58 | disposition home or self-care (01) | DRG 871 ==
LOC: ER 07:18 → ERHOLD 12:40 → 2ND 20:51 → OBSVTOIN 03-17 12:53
PROVIDERS: ADMIT Internal Medicine; ATTEND Hospitalist
PROC: 5A09457 Assistance with Respiratory Ventilation, 24-96 Consecutive Hours, Continuous Positive Airway Pressure (ICD-10-PCS; principal; 2023-03-15)
DX: A41.9 Sepsis, unspecified organism (principal); J96.21 Acute and chronic respiratory failure with hypoxia; E87.1 Hypo-osmolality and hyponatremia; J44.1 Chronic obstructive pulmonary disease with (acute) exacerbation; E03.9 Hypothyroidism, unspecified; F17.210 Nicotine dependence, cigarettes, uncomplicated; Z99.81 Dependence on supplemental oxygen; Z11.52 Encounter for screening for COVID-19; Z79.52 Long term (current) use of systemic steroids; Z90.710 Acquired absence of both cervix and uterus; Z79.890 Hormone replacement therapy; Z79.899 Other long term (current) drug therapy
CPT/HCPCS: 36415; 71045; 80048; 80053; 81001; 83605; 83735; 84439; 84443; 85025; 85610; 85730; 87040; 87635; 87804; 93005; 94640; 94760; 96365; 96367; 96375; 99285; G0378; J0696; J1650; J2930; J3475; J3535; J7050; J7512; J7613; J7644